=== PATIENT | male | born 1965 | race Caucasian/White ===

== ENCOUNTER 2017-04-08 08:57 | Emergency (ER) | payer MEDICARE, MEDICAID ==
[~2017-04-08] VITALS: Ht 175.3 cm; Wt 63.2 kg
[~2017-04-08 08:57] MED LIST: BENZ0.5T PO; CYCL10TA50 PO; GABA-827 PO; GABA100C8; MELO15TA6 PO; METH-438 PO; METH20TA PO; MIRT30TA6 PO; OXCA150T PO; TIZA4TAB PO; ZIPR80CA3 PO; [UNRECOGNIZED DRUG - OTHER] PO
[2017-04-08 08:58] VITALS: BP 130/84
[2017-04-08] MEDS ORDERED: LIDOCAINE 1%, 20ML ONE (09:43)
[2017-04-08] MEDS ORDERED: LIDOCAINE 1%-EPI 1:100K, 20ML SQ ONE (10:00)
== END 2017-04-08 10:17 | disposition home or self-care (01) ==
LOC: ED 09:36
DX: L02.31 Cutaneous abscess of buttock (principal)
CPT/HCPCS: 10060; 99283

== ENCOUNTER 2018-09-18 08:27 | Emergency (ER) | payer MEDICARE, MEDICAID ==
[~2018-09-18] VITALS: Ht 175.3 cm; Wt 68.9 kg
[~2018-09-18 08:27] MED LIST changes: -BENZ0.5T PO; +BENZ0.5T35 PO; +GABA-826; -GABA100C8; -OXCA150T PO; +OXCA150T18 PO
[2018-09-18 08:32] VITALS: BP 108/70
== END 2018-09-18 09:32 | disposition home or self-care (01) ==
LOC: ED 09:20
DX: S39.012A Strain of muscle, fascia and tendon of lower back, initial encounter (principal); H60.11 Cellulitis of right external ear; G89.29 Other chronic pain; X58.XXXA Exposure to other specified factors, initial encounter; Y93.89 Activity, other specified; Y92.89 Other specified places as the place of occurrence of the external cause; Y99.8 Other external cause status
CPT/HCPCS: 99283

== ENCOUNTER 2019-06-08 08:58 | Emergency (ER) | payer MEDICARE, MEDICAID ==
[~2019-06-08] VITALS: Ht 175.3 cm; Wt 65.9 kg
[2019-06-08 09:02] VITALS: BP 131/78
== END 2019-06-08 11:16 | disposition left against medical advice (07) ==
LOC: ED 11:06
DX: L02.414 Cutaneous abscess of left upper limb (principal); F20.9 Schizophrenia, unspecified; M19.90 Unspecified osteoarthritis, unspecified site
CPT/HCPCS: 10060; 90471; 90715; 99283; 99284

== ENCOUNTER 2021-03-24 11:53 | Emergency (ER) | payer MEDICARE, MEDICAID ==
[~2021-03-24] VITALS: Ht 175.3 cm; Wt 71.3 kg
[~2021-03-24 11:53] MED LIST changes: -MIRT30TA6 PO; +MIRT30TA97 PO; -TIZA4TAB PO; +TIZA4TAB2 PO
[2021-03-24 12:12] VITALS: BP 126/76
--- NOTE | 2021-03-24 12:56 | NUR ---
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
[2021-03-24] MEDS ORDERED: LIDOCAINE-MPF 1%, 5ML ONE ×2 (12:58→13:57)
[2021-03-24] MEDS ORDERED: LIDOCAINE-MPF 1%, 5ML INFIL ONE (13:00)
--- NOTE | 2021-03-24 13:04 | NUR ---
RIGHT FORARM LUMP THAT IS RED AND SWOLLEN. REPORTS HAS BEEN LIKE THAT FOR A DAY OR TWO. NO DRAINAGE. PT ALERT AND ORIENTED. NO NEEDS AT THIS TIME.
[2021-03-24] MEDS ORDERED: NEOSPORIN OINT. PKT 1 PACKET ONE (14:18)
== END 2021-03-24 14:43 | disposition home or self-care (01) ==
LOC: ED 14:30
DX: L02.413 Cutaneous abscess of right upper limb (principal); Z90.89 Acquired absence of other organs
CPT/HCPCS: 10060; 99283

== ENCOUNTER 2021-03-26 10:05 | Emergency (ER) | payer MEDICARE, MEDICAID ==
[2021-03-26 10:12] VITALS: BP 115/71
--- NOTE | 2021-03-26 10:31 | NUR ---
PRESENTS FOR RUE I&D WOUND RECHECK SWELLING/REDNESS IMPROVED. NO FEVERS/NAUSEA HAS BEEN COMPLIANT WITH PO ABX
[2021-03-26] MEDS ORDERED: NEOSPORIN OINT. PKT 1 PACKET ONE (10:38)
--- NOTE | 2021-03-26 10:45 | NUR ---
R forearm wound well approximated, mild swelling. MD Metcalf to bedside for assessment and gave verbal DC insturctions.
--- NOTE | 2021-03-26 11:01 | NUR ---
RECEIVED REPORT FROM VARINDER
--- NOTE | 2021-03-26 11:07 | NUR ---
MD WILLIS GAVE VERBAL DC INSTRUCTIONS TO PT. PT IN NAD. AMBULATED TO REGISTRATION. WOUND CARE AND BANDAGE APPLIED TO WOUND
== END 2021-03-26 11:09 | disposition home or self-care (01) ==
LOC: ED 10:16
DX: L02.413 Cutaneous abscess of right upper limb (principal)
CPT/HCPCS: 99282